=== PATIENT | female | born 1950 | race Caucasian/White ===

== ENCOUNTER → 2017-11-06 | Day surgery (SDC) | payer MEDICARE ==
[~2017-11-06] VITALS: Ht 149.9 cm; Wt 71.7 kg
[~2017-11-06] MED LIST: ACETAMINOPHEN 1000 MG/100 ML 100 ML IV ONE; CHLORHEXIDINE GLUCONATE 2 % 1 PACK (2 CLOTHS) TOPICAL PRN; DO NOT ADM ANY ANTICOAGULANT DRUGS PRN; DOXE10CO2 PO; GLYCOPYRROLATE 1 MG/5 ML SYRINGE IV PUSH ONE; HYDR25TA5 PO; KETOROLAC TROMETHAMINE 30 MG/ML (IVP) VIAL IV PUSH ONE; LACTATED RINGER'S 1000 ML INJ 1,000 ML IV ONE; LACTATED RINGER'S 1000 ML IV PRN; LEVO50TA4 PO; LIDOCAINE HCL 1% PF 5 ML SYRINGE OTHER ONE; METF500T PO; METO50TA PO; METOPROLOL TARTRATE 25 MG TAB PO PRN; NOVOINJ2 SQ; NRDRIP SQ; ONDANSETRON HCL 4 MG/2 ML VIAL IV ONE; ONDANSETRON HCL 4 MG/2 ML VIAL IV PUSH PRN; PHENYLEPH/NS 1000 MCG/10 ML SYR IV ONE; POVIDONE IODINE 5% (ANTISEPSIS KIT) 4 APPLICATIONS EACH NARE PRN; PROMETHAZINE INJ 25 MG/ML VIAL ONE; PROPOFOL 200 MG/20 ML AMP IV ONE; RAMI5CAP PO; SIMV10TA PO; SODIUM CHLORID 0.9% 500 ML IV PRN; ceFAZolin 1,000 MG/NS 100 ML IV SCH; ePHEDrine/NS 25 MG/5 ML SYRINGE IV ONE; oxyCODONE/ACETAMINOPHEN 10 MG/325 MG TAB PO PRN; oxyCODONE/ACETAMINOPHEN 5 MG/325 MG TAB PO PRN
--- NOTE | 2017-11-06 07:46 | PD.OP ---
Operative Report Date of Surgery: November 06, 2017 Preoperative Diagnosis: (1) Postmenopausal bleeding (2) Intramural leiomyoma of uterus (3) Stricture and stenosis of cervix uteri (4) Pelvic and perineal pain Postoperative Diagnosis: (1) Postmenopausal bleeding (2) Intramural leiomyoma of uterus (3) Stricture and stenosis of cervix uteri (4) Pelvic and perineal pain Procedure: 1. hysteroscopy 2. D&C Anesthesia: DEJA Surgeon: Fanny Scott Clarity Specialists(s): OR Staff Operation and Findings: IVF: 1 liter + IV antibiotics given prior to surgery EBL: 50 ml UO: 100 ml Findings: 1. severe cervical stenosis 2. narrow vaginal canal 3, normal uterine cavity Specimens: endometrial curettings Complications: none Condition: stable Disposition: PACU Description of the procedure: The risks, benefits and alternatives of the procedure were discussed with the patient. Her questions were answered. The patient signed informed consent and wished to proceed. She was taken to the operating room with her IV running. She was placed in the supine position and was given general anesthesia without difficulties or complications. The patient was placed in the dorsal lithotomy position and was prepped and draped in the usual sterile fashion. Two right angle retractors were used to visualize the cervix. (The bivalve speculum was found to be too wide for the patient). The anterior aspect of the cervix was grasped with a single tooth tenaculum for manipulation. The cervix was carefully dilated. A Myosure hysteroscope was placed inside the patient's uterus. Next, a careful curettage was done with a sharp curet. Scant pieces of tissue were recovered. The tissue was sent to pathology. Due to a narrow vaginal canal and significant stenosis of the cervix, the procedure was rather difficult. Tears in the cervix were noted. These tears were repaired with locked stitches of 0-Chronic. All the instruments were removed from the patient's uterus. Good hemostasis was noted. All the instruments were removed from the patient's vagina. She tolerated the procedure well; she was successfully awaken from general anesthesia and was transferred to PACU in stable condition. Note: I discussed the surgical findings and surgical procedures with patient's . His questions were answered. He verbalized understanding and agreement to the procedures done. Fanny Scott MD November 06, 2017 07:46
[2017-11-06 16:25] VITALS: BP 119/69; PULSE 77; RESP 16; TEMP 97; O2SAT 98
--- NOTE | 2017-11-07 08:15 | EKG ---
Date Performed: 11/06/2017 Time Performed: 11:38:48 PTAGE: 67 years EKG: SINUS BRADYCARDIA RIGHT BUNDLE BRANCH BLOCK ABNORMAL ECG NO PREVIOUS TRACING DOCTOR: Jessica Pinzon Interpretating Date/Time 11/07/2017 08:13:48
== END | disposition home or self-care (01) ==
LOC: HSDC 11:16
PROVIDERS: ATTEND Obstetrics & Gynecology
DX: D25.1 Intramural leiomyoma of uterus (principal); N88.2 Stricture and stenosis of cervix uteri; N95.0 Postmenopausal bleeding; I10 Essential (primary) hypertension
CPT/HCPCS: 00952; 58558; 88305; 93005; J0131; J0690; J1885; J2370; J2405; J2550; J3010; J7120